=== PATIENT | female | born 1965 | race African-American/Black ===

== ENCOUNTER 2016-06-09 11:38 | Inpatient (IN) | payer OTHER ==
[~2016-06-09] VITALS: Ht 160 cm; Wt 112.7 kg
[~2016-06-09 11:38] MED LIST: BENZ100C PO; LEVO750T31 PO; PROAIR HFA8.5 GM INH
--- NOTE | 2016-06-09 13:19 | PHYS DOC ---
Past Medical History Past Medical History: Diabetes-Type II, High Cholesterol, Hypertension Past Surgical History: , Other Additional Past Surgical Histo: heart cath,LYMPH NODE BIOPSY Alcohol Use: None Drug Use: None Adult General Chief Complaint Chief Complaint: CHEST PAIN HPI HPI Patient is a 50 year old female who presents with chest pain. Patient reports for the past few days she has been having left-sided chest pain. She describes a constant pressure with occasional sharp, stabbing pains. This pain radiates to her back and her L arm. Patient reports pain is worse with movement, and slightly better when sitting still. She also reports feeling short of breath, lightheaded, nauseous. No prior similar episodes. Patient reports she has tried Pepcid and aspirin (325mg) at home today with insufficient relief. Review of Systems Review of Systems Constitutional: Lightheaded. Denies fever or chills Eyes: Denies change in visual acuity or eye pain HENT: Denies nasal congestion or sore throat Respiratory: Shortness of breath Cardiovascular: L side chest pain GI: Nausea. Denies abdominal pain, vomiting, bloody stools or diarrhea : Denies dysuria or hematuria Musculoskeletal: Chest pain radiates to back and L arm Integument: Denies rash or skin lesions Neurologic: Denies headache, focal weakness or sensory changes Current Medications Current Medications Current Medications Medications (Trade) Dose Ordered Sig/Christopher Start Time Stop Time Status Last Admin Dose Admin Iohexol (Omnipaque 300 Mg/ml) 75 ml 1X ONCE 06/09/16 14:15 06/09/16 14:16 DC 06/09/16 14:22 75 ML Morphine Sulfate 4 mg 4 mg 1X ONCE 06/09/16 13:30 06/09/16 13:36 DC 06/09/16 13:40 4 MG Nitroglycerin (Nitrostat) 0.4 mg PRN Q5MIN PRN 06/09/16 15:30 06/09/16 15:42 0.4 MG Ondansetron HCl (Zofran) 4 mg 1X ONCE 06/09/16 15:45 06/09/16 15:46 DC 06/09/16 15:42 4 MG Sodium Chloride (Iv Sodium Chloride 0.9% 1000ml Bag) 1,000 ml @ 1,000 mls/hr 1X ONCE 06/09/16 14:15 06/09/16 15:14 DC 06/09/16 14:15 1,000 MLS/HR Allergies Allergies Allergies Coded Allergies Type Severity Reaction Last Updated Verified latex Allergy Intermediate 01/05/16 Yes Physical Exam Physical Exam Constitutional: Well developed, well nourished, no acute distress, non-toxic appearance HENT: Normocephalic, atraumatic, bilateral external ears normal Eyes: EOMI, conjunctiva normal, no discharge Neck: Normal range of motion, no stridor Cardiovascular: Heart rate normal, regular rhythm, no murmur Lungs & Thorax: Bilateral breath sounds clear to auscultation Abdomen: Bowel sounds normal, soft, non-distended, no TTP Skin: Warm, dry, no erythema, no rash Back: No tenderness, no skin lesions. LUE visually unremarkable, motor function and sensation to light touch preserved, 2+ radial pulse Extremities: No obvious deformity, no edema Neurologic: Alert and oriented X 3, no gross deficits noted Current Patient Data Vital Signs Vital Signs Date Time Temp Pulse Resp B/P Pulse Ox O2 Delivery O2 Flow Rate FiO2 06/09/16 15:42 68 134/83 06/09/16 13:40 20 06/09/16 12:04 98 96 Room Air 98.0 Lab Values Laboratory Tests Test 06/09/16 12:25 White Blood Count 4.5x10^3/uL (4.0-11.0) Red Blood Count 4.49x10^6/uL (3.50-5.40) Hemoglobin 12.5g/dL (12.0-15.5) Hematocrit 38.5% (36.0-47.0) Mean Corpuscular Volume 86fL (79-100) Mean Corpuscular Hemoglobin 28pg (25-35) Mean Corpuscular Hemoglobin Concent 33g/dL (31-37) Red Cell Distribution Width 13.6% (11.5-14.5) Platelet Count 69x10^3/uL (140-400) L Neutrophils (%) (Auto) 46% (31-73) Lymphocytes (%) (Auto) 39% (24-48) Monocytes (%) (Auto) 10% (0-9) H Eosinophils (%) (Auto) 4% (0-3) H Basophils (%) (Auto) 0% (0-3) Neutrophils # (Auto) 2.1x10^3uL (1.8-7.7) Lymphocytes # (Auto) 1.8x10^3/uL (1.0-4.8) Monocytes # (Auto) 0.5x10^3/uL (0.0-1.1) Eosinophils # (Auto) 0.2x10^3/uL (0.0-0.7) Basophils # (Auto) 0.0x10^3/uL (0.0-0.2) D-Dimer (Lexis) 0.97ug/mlFEU (0.00-0.50) H Sodium Level 137mmol/L (136-145) Potassium Level 4.1mmol/L (3.5-5.1) Chloride Level 97mmol/L (98-107) L Carbon Dioxide Level 29mmol/L (21-32) Anion Gap 11 (6-14) Blood Urea Nitrogen 14mg/dL (7-20) Creatinine 1.0mg/dL (0.6-1.0) Estimated GFR (Cockcroft-Gault) 70.5 Glucose Level 384mg/dL (70-99) H Calcium Level 9.4mg/dL (8.5-10.1) Troponin I Quantitative 0.022ng/mL (0.000-0.055) Laboratory Tests 06/09/16 12:25 Laboratory Tests 06/09/16 12:25 EKG EKG EKG (my read): sinus rhythm, rate 78, normal axis, intervals wnl, nonspecific ST changes Radiology/Procedures Radiology/Procedures CXR: Impression: No acute thoracic findings. CTA chest: Impression: 1. Negative for pulmonary embolism. 2. Pulmonary nodules, follow-up per Fleischner Society recommendations. 3. Enlarged axillary lymph nodes bilaterally, correlate with any recent infection. Lymphoma cannot be excluded. Course & Med Decision Making Course & Med Decision Making Pertinent Labs and Imaging studies reviewed. (See chart for details) Patient is 50-year-old female who presents with chest discomfort, SOB, dizziness. Concern for possibility of ACS. Will check EKG, CXR, labs to evaluate. Has already had full dose ASA today. Will give dose of morphine for pain control. EKG ok per my read. Labs notable for hyperglycemia, elevated d- dimer. CTA chest obtained; imaging results as above. Patient aware of pulmonary nodules, and has had multiple biopsies with no clear diagnosis made. Discussed results with patient, who continues to have some chest discomfort. Will trial sublingual nitroglycerin for pain control. Will admit under the care of Dr. Saba for further evaluation and treatment. Dragon Disclaimer Dragon Disclaimer This electronic medical record was generated, in whole or in part, using a voice recognition dictation system. Departure Departure Impression: Primary Impression: Chest pain Additional Impressions: SOB (shortness of breath) Dizziness Disposition: ADMITTED INPATIENT Admitting Physician: Other Condition: STABLE Referrals: UNKNOWN PCP NAME (PCP) Problem Qualifiers DINA MIXON MD Jun 09, 2016 13:19
[2016-06-09 13:30] LABS: BASO % 0 % (0-3); EOS % 4 % (0-3); HEMATOCRIT 38.5 % (36.0-47.0); HEMOGLOBIN 12.5 g/dL (12.0-15.5); LYMPH # 1.8 x10^3/uL (1.0-4.8); LYMPH % 39 % (24-48); MEAN CORPUSCULAR HEMOGLOBIN 28 pg (25-35); MEAN CORPUSCULAR HGB CONC 33 g/dL (31-37); MEAN CORPUSCULAR VOLUME 86 fL (79-100); MONO % 10 % (0-9); NEUT % 46 % (31-73); PLATELET COUNT 69 x10^3/uL (140-400); RED BLOOD COUNT 4.49 x10^6/uL (3.50-5.40); RED CELL DISTRIBUTION WIDTH 13.6 % (11.5-14.5); WHITE BLOOD COUNT 4.5 x10^3/uL (4.0-11.0)
[2016-06-09] MEDS ORDERED: MORPHINE SULFATE 4 MG/ML DISP.SYRIN. IV ONE (13:30)
[2016-06-09] MEDS ORDERED: ONDANSETRON PF 4 MG/2 ML VIAL. IV ONE ×2 (13:30→15:45)
[2016-06-09 13:41] LABS: CALCIUM 9.4 mg/dL (8.5-10.1); GFR 70.5; POTASSIUM 4.1 mmol/L (3.5-5.1)
--- NOTE | 2016-06-09 13:44 | RAD ---
Indication: Left chest pain for 3 days. Short of breath today. Technique: Two-view chest radiograph was obtained. Comparison is from January 05, 2016. Findings: The lungs are clear. The cardiopulmonary silhouette is within normal limits. There is no pleural effusion. The bony structures are intact. Leads overlie the patient. Impression: No acute thoracic findings.
[2016-06-09] MEDS ORDERED: IV NORMAL SALINE 1000ML BAG 1,000 ML IV ONE (14:15)
[2016-06-09] MEDS ORDERED: IOHEXOL 300 MG/ML 75 ML VIAL IV ONE (14:15)
--- NOTE | 2016-06-09 14:56 | RAD ---
Indication: Severe chest pain radiating to back for 3 to 4 days, short of air today. Technique: Axial images and coronal and sagittal maximum intensity projection reformatted images are provided. 75 mL of intravenous Omnipaque 300 was administered without complication. No comparison is available. One or more of the following individualized dose reduction techniques were utilized for this examination: 1. Automated exposure control 2. Adjustment of the mA and/or kV according to patient size 3. Use of iterative reconstruction technique Findings: The contrast bolus is satisfactory. There is no filling defect to suggest pulmonary embolism. There is no aortic aneurysm or dissection. The heart is not enlarged. There is no hilar or mediastinal adenopathy. Central airways are patent. There is dependent atelectasis. There are calcified granulomas. Several pulmonary nodules are noted on the right, for example on images 64, 66, 72, and 94. These measure up to 5 mm in size. 3 mm nodule is noted on the left on image 52. 6 mm nodule is noted on the left on image 37. There is no consolidation. There is fatty infiltration of the liver and the liver appears enlarged. There are degenerative changes in the spine. Axillary nodes bilaterally are prominent in size and number. Nodules detected incidentally at non-screening CT (Fleischner Society Recommendations) Nodule size less than or equal to 4 mm Low Risk patients- no follow-up needed High Risk patients- follow-up at 12 months and if no change, no further imaging needed. Nodule size > 4-6 mm Low risk patients- follow- up at 12 months and if no change, no further imaging needed High risk patients- initial follow-up CT at 6-12 months and then at 18-24 months if no change. Nodule Size > 6-8 mm Low risk patients- initial follow-up CT at 6-12 months and then at 18-24 months if no change. High risk patients- initial follow- up CT at 3-6 months and then at 9-12 months if no change, Nodule Size >8 mm Both low and high risk patients: Follow-up CT at around 3, 9 and 24 [address], PET, and/or biopsy Note: newly detected indeterminate nodule in person 35 years of age or older. Low risk patients- minimal or absent history of smoking and/or other known risk factors. High risk patients- history of smoking or of other known risk factors. Impression: 1. Negative for pulmonary embolism. 2. Pulmonary nodules, follow-up per Fleischner Society recommendations. 3. Enlarged axillary lymph nodes bilaterally, correlate with any recent infection. Lymphoma cannot be excluded.
[2016-06-09] MEDS ORDERED: NITROGLYCERIN SUBLINGUAL 0.4 MG BOTTLE OF 25. SL PRN (15:30)
[2016-06-09] MEDS ORDERED: DEXTROSE 50% 25 GM / 50ML DISP.SYRIN. IV PRN (16:00)
[2016-06-09] MEDS ORDERED: ACETAMINOPHEN 325 MG TABLET. PO PRN (16:00)
[2016-06-09] MEDS ORDERED: ONDANSETRON PF 4 MG/2 ML VIAL. IV PRN (16:00)
[2016-06-09] MEDS ORDERED: MORPHINE SULFATE 4 MG/ML DISP.SYRIN. IV PRN ×2 (16:00→21:15)
--- NOTE | 2016-06-09 16:50 | ACF ---
Admission Forms Criteria CARDIOLOGY GRG Clinical Indications for Admission to Inpatient Care ( Place 'X' for any and all applicable criteria): Hospital admission is needed for appropriate care of the patient because of ANY ONE of the following (1): [ ] I. Hemodynamic instability as indicated by ALL of the following (1)(2)(3) (4)(5) [ ]a) Vital signs or other findings not as expected for chronic patient condition or baseline [ ]b) Instability indicated by ANY ONE of the following: [ ]i) Hypotension [ ]ii) Symptomatic Tachycardia unresponsive to treatment ( e.g., analgesia, fluids, sedation as indicated) [ ]iii) Inadequate perfusion indicated by ANY ONE of the following: [ ] 1) Lactic acidosis (> 2 mmol/L) [ ] 2) New abnormal capillary refill (> 3 seconds) [ ] 3) Reduced urine output [ ] 4) New altered mental status [ ]iv) Orthostatic vital sign changes unresponsive to treatment (e.g., fluids) [ ]v) IV inotropic or vasopressor medication required to maintain adequate blood pressure or perfusion [ ] II. Severe heart failure as indicated by ANY ONE of the following(17)(18) [ ]a) Respiratory distress [ ]b) Hypotension [ ]c) Anasarca (refractory to outpatient therapy) [ ]d) Cardiac arrhythmias of immediate concern [ ]e) Myocardial ischemia [ ] III. Cardiac arrhythmias or findings of immediate concern indicated by ANY ONE of the following (19)(20): [ ] a) Heart rhythms that are inherently dangerous or unstable indicated by ANY ONE of the following (21)(22)(23): [ ] i) Resuscitated ventricular fibrillation or cardiac arrest [ ] ii) Ventricular escape rhythm [ ] iii) Sustained ventricular tachycardia (30 seconds or more of ventricular rhythm at greater than 100 beats per minute) [ ] iv) Nonsustained ventricular tachycardia and ANY ONE of the following: [ ] 1) Suspected cardiac ischemia as cause or consequence of ventricular tachycardia [ ] 2) In setting of acute myocarditis [ ] b) Unstable cardiac conduction defects indicated by ANY ONE of the following(23)(24)(25) [ ] i) Type II second-degree atrioventricular block [ ]ii) Third-degree atrioventricular block [ ]iii) New-onset left bundle branch block with suspected myocardial ischemia [ ]c) Any heart rhythm and ANY ONE of the following (21)(22)(26)(27) (28) [ ] i) Continuous long-term ECG monitoring needed (e.g., initiation of drug requiring monitoring for more than 24 hours) [ ] ii) Patient has automatic implanted cardioverter defibrillator that is repeatedly firing, malfunctioning, or in need of immediate adjustment of settings beyond the scope of ambulatory or observation care [ ]d) Heart rhythms of concern due to ANY ONE of the following: [ ] i) Hypotension [ ] ii) Respiratory distress [ ] iii) Association with other significant symptoms (e.g., bradycardia with syncope or ongoing dizziness, supraventricular tachycardia with chest pain (14)(15)(17) [ ] IV. Monitoring for cardiac contusion beyond the scope of observation care needed [A](30)(31)(32) [ ] V. Surgical or device complication (e.g., valve replacement complication , pacemaker dysfunction) (35)(41)(44)(45)(46) [ ] . Inpatient palliative care needed. [B](49) Also use Inpatient Palliative Care Criteria [ ] VII. Nonbacterial thrombotic (marantic) endocarditis (36)(43)(47)(48) [X] VIII. Cardiology condition, symptom, or finding for which emergency and observation care has failed or are not considered appropriate. [ ] IX. Acute valvular disease requiring inpatient as indicated by ANY ONE of the following (41) [ ]a) Acute valvular regurgitation (42) [ ]b) Noninfectious valvulitis (43) [ ]c) Obstructive valve thrombosis [ ]d) Paravalvular leak [ ]e) Other significant valvular disorder remaining after emergency or observation level of care (as appropriate) [ ]X. Pericardial disease requiring inpatient treatment as indicated by ANY ONE of the following (33)(34)(35)(36)(37) [ ]a) Suspected tamponade (38)(39)(40) [ ]b) Hemopericardium [ ]c) Other significant pericardial disorder remaining after emergency or observation level of care (as appropriate) [ ] XI. Cardiac ischemia beyond scope of emergency and observation care. [ ] XII. Hypertension requiring inpatient treatment as indicated by ANY ONE of the following (6)(7)(8) [ ]a) SBP greater than 220 mm Hg or DBP greater than 120 mmHg despite treatment [ ]b) SBP greater than 140 mm Hg or DBP greater than 100 mm Hg with evidence of acute end organ damage as indicated by ANY ONE of the following [ ] i) Encephalopathy [ ] ii) Acute renal failure as indicated by new onset of ANY ONE of the following (9)(10)(11)(12)(13) [ ]1) 3-fold rise in serum creatinine from baseline [ ]2) Serum creatinine greater than 4 mg/dL ( 354 micromoles/L) with acute rise greater than 0.5 mg/dL (44.2 micromoles/L) [ ]3) Reduction of more than 75% in estimated glomerular filtration rate from baseline [ ]4) Estimated glomerular filtration rate less than 35 mL/min/1.73m2 (0.59 mL/sec/1.73m2) in child up to 18 years of age [ ]5) Cessation of urine output indicated by ALL of the following [ ]A. Adequate volume status [ ]B. Inadequate urine output as indicated by ANY ONE of the following [ ]a. Urine output less than 0.3 mL/kg/hr for 24 hours [ ]b. Anuria (urine output less than 0.1 mL/kg/hr) for 12 hours [ ] iii) Aortic dissection [ ] iv) Myocardial Ischemia [ ] v) Left ventricular heart failure [ ]vi) Retinal Hemorrhage [ ]vii) Other significant finding [ ]c) Hypertension in child requiring inpatient treatment as indicated by ALL of the following(14)(15)(16) [ ] i) Outpatient treatment not effective, not available, or not appropriate [ ]ii) SBP or DBP greater than 95th percentile for age [ ]iii) Evidence of acute end organ damage as indicated by ANY ONE of the following [ ]1) Altered mental status [ ]2) Acute renal failure as indicated by new onset of ANY ONE of the following(9)(10)(11)(12)(13) [ ]A. 3-fold rise in serum creatinine from baseline [ ]B. Serum creatinine greater than 4 mg/dL (354 micromoles/L) with acute rise greater than 0.5 mg/dL (44.2 micromoles/L) [ ]C. Reduction of more than 75% in estimated glomerular filtration rate from baseline [ ]D. Estimated glomerular filtration rate less than 35 mL/min/1.73m2 (0.59 mL/sec/1.73m2) in child up to 18 years of age [ ]E. Cessation of urine output indicated by ALL of the following [ ]a. Adequate volume status [ ]b. Inadequate urine output as indicated by ANY ONE of the following [ ]i) Urine output less than 0.3 mL/kg/hr for 24 hours [ ]ii) Anuria ( urine output less than 0.1 mL/kg/hr) for 12 hours [ ]3) Severe headache [ ]4) Visual disturbance [ ]5) Retinal hemorrhage [ ]6) Other significant finding [ ]XIII. Complications of transplanted heart indicated by ANY ONE of the following(61): [ ]a) Acute graft rejection requiring inpatient management (eg, intravenous immunosuppression)(62)(63) [ ]b) Acute graft heart failure indicated by ANY ONE of the following(64): [ ]i) Hemodynamic instability [ ]ii) Cardiac arrhythmias of immediate concern [ ]iii) Pulmonary edema that is very severe (eg, mechanical ventilation needed, imminent or likely, need for 100% oxygen to keep oxygen saturation above 90%) [ ]iv) Pulmonary edema that is persistent as indicated by ALL of the following: [ ]1) New need for oxygen therapy to keep oxygen saturation above 90% (or increased FiO2 need from baseline) [ ]2) Has not improved sufficiently with emergency department or observation care IV diuretics or other heart failure treatments[E] [ ]v) Altered mental status that is severe or persistent [ ]vi) Increased creatinine (new on laboratory test) with reduction of more than 50% in estimated glomerular filtration rate from baseline [ ]vii) Progressively (ongoing) rising creatinine (known from past laboratory test) with reduction of more than 25% in estimated glomerular filtration rate from baseline [ ]viii) Acute renal failure [ ]ix) Acute peripheral ischemia (eg, examination shows pulseless, cool, mottled, or cyanotic extremity) [ ]x) Pulmonary artery catheter monitoring needed [ ]xi) Other sign or symptom of heart failure requiring inpatient treatment (ie, too severe or not responsive to outpatient and observation care treatment) [ ]c) Infection requiring inpatient management (eg, Hemodynamic instability, need for intravenous antimicrobial treatment)(66)(67)(68)(69)(70) [ ]d) Cardiac allograft vasculopathy requiring inpatient management ( eg evidence of cardiac ischemia)(71) [ ]e) Other complication of transplanted heart (eg, stroke, severe pulmonary hypertension, severe valvular dysfunction) requiring inpatient management(72) The original [facility] content created by [facility] has been revised. The portions of the content which have been revised are identified through the use of italic text or in bold, and [facility] has neither reviewed nor approved the modified material. All other unmodified content is copyright [facility]. Please see references footnoted in the original [facility] edition 2016 Admission Criteria Met?: Yes LUIS ANTONIO REDDY Jun 09, 2016 16:50
[2016-06-09 17:00] VITALS: BP 138/78
[2016-06-09] MEDS ORDERED: PRAV40TA2 PO (17:26)
[2016-06-09] MEDS ORDERED: METF10002 PO (17:26)
[2016-06-09] MEDS ORDERED: GLYB2.5T2 PO (17:26)
[2016-06-09] MEDS ORDERED: LISI-334 PO (17:26)
[2016-06-09] MEDS ORDERED: INSU100I13 SQ (17:26)
[2016-06-09] MEDS ORDERED: HYDR12.58 PO (17:26)
[2016-06-09] MEDS: INSULIN ASPART 300 UNITS/3 ML INSULN.PEN SQ SCH (17:36)
[2016-06-09] MEDS ORDERED: NON FORMULARY ITEM (Albuterol Sulfate (Proair Hfa Inhaler) 1 PUFF) INH PRN (18:45)
[2016-06-09 19:00] VITALS: BP 165/101
[2016-06-09] MEDS ORDERED: ALBUTEROL SULFATE 2.5 MG/3 ML NEBU. NEB PRN (19:30)
[2016-06-09] MEDS ORDERED: METOCLOPRAMIDE HCL 10 MG/2 ML VIAL. IV PRN (21:00)
[2016-06-09] MEDS ORDERED: ATORVASTATIN CALCIUM 10 MG TABLET. PO SCH (21:00)
[2016-06-09] MEDS ORDERED: MORPHINE SULFATE 2 MG/ML DISP.SYRIN. IV PRN (21:15)
--- NOTE | 2016-06-09 21:43 | HP ---
ADMIT DATE: 06/09/2016 CHIEF COMPLAINT: Chest pain. HISTORY OF PRESENT ILLNESS: The patient is a 50-year-old obese woman with diabetes mellitus who presented to the Emergency Room with left-sided chest pain. She relates that the pain is located in the lower half of the chest on the left just lateral to the sternum. This started essentially 3 days ago first to be a constant pressure with occasional sharp, stabbing pains. Pain actually radiates into her back. Denies that it gets worse with deep breathing, but does get worse with moving. She feels short of breath, lightheaded, nauseous. She actually had also pain radiating into her neck and into her left arm earlier today. She tried Pepcid without any relief of her symptoms and therefore decided to present to the Emergency Room. Of note, she actually had presented with chest pain to an outside hospital in 2014 and had undergone a stress test, which was abnormal, prompting a cardiac cath which according to her was clean. Since being in the Emergency Room, patient actually vomited twice, which she had not done at home. She denies any fevers, any chills, any sick contacts at home. Denies any abdominal pain or diarrhea or constipation. PAST MEDICAL HISTORY: Diabetes type 2, hypertension, hypercholesterolemia, lymphadenopathy in both axillae as well as lesions in her lungs. Worked up at with 3 lymph node biopsies between October and January, all inconclusive. She continues to be followed currently by Infectious Disease. FAMILY HISTORY: Positive for diabetes and heart disease. SOCIAL HISTORY: Lives by herself, never smoked. No toxic habits. 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 ALLERGIES: LATEX. MEDICATIONS: MAR reconciled with home medications. REVIEW OF SYSTEMS: Positive as per HPI. Once again nauseous despite receiving Zofran in the ER. The rest of organ system review is negative. PHYSICAL EXAMINATION: VITAL SIGNS: From today show blood pressure of 165/101, heart rate 79, respiratory rate at 18. She is afebrile. GENERAL: This is a morbidly obese woman, alert and oriented, no acute distress. HEENT: Shows no scleral icterus. Oral mucosa is pink and moist. NECK: Supple. LUNGS: Clear to auscultation bilaterally. CARDIOVASCULAR: Regular rate and rhythm. ABDOMEN: Has positive bowel sounds, soft, no tenderness to palpation throughout. EXTREMITIES: Showed no edema. SKIN: Warm, soft and dry. LABORATORY DATA: CBC with a WBC of 4.5, hemoglobin 12.5, platelets of 69. Chemistries with a BUN and creatinine of 14 and 1.0. Electrolytes essentially within normal limits. Glucose at 384. Troponin 0.02. D-dimer slightly elevated at 0.97. Imaging studies with a chest x-ray showing no acute thoracic findings. CTA obtained for elevated D-dimer shows no evidence of PE, multiple pulmonary nodules were noted as well as enlarged axillary lymph nodes bilaterally. ASSESSMENT AND PLAN: The patient is a 50-year-old woman with atypical chest pain x 3 days. She did have workup 2 years ago that was negative. Nevertheless, we will admit to rule out acute coronary syndrome. Suspect this may be related to GI system, especially with additional symptoms of nausea and vomiting. We will switch antiemetics from Zofran to Reglan and give her IV fluids, bowel rest for the time being. Blood sugars are very poorly controlled currently. She relates that typically she does not go above 200 with her blood sugars at home. We will add insulin sliding scale to her regimen to keep her sugars under control. Hemoglobin A1c will be obtained. Mild hypokalemia will be corrected IV, given her nausea at this time. Monitor her closely. Lymphadenopathy and pulmonary nodules have been worked up at extensively over the past year. The processes are thought to be connected potentially lymphoma versus infectious etiology. These appear to be highly unlikely related to current symptoms. Prophylaxis will be achieved with PPI. We will start Lovenox for DVT prophylaxis as well. KOTA LYNN MD DR: JAMSHID/nts JOB#: [id number] / [id number] GURDEEP
[2016-06-09] MEDS: LISINOPRIL 20 MG TABLET PO SCH (21:49)
[2016-06-09] MEDS: INSULIN DETEMIR 300 UNITS/3 ML INSULN.PEN. SQ SCH (21:52)
[2016-06-09 22:44] VITALS: BP 134/89
[2016-06-10 02:45] VITALS: BP 120/70
--- NOTE | 2016-06-10 06:06 | EKG ---
[facility] [address] [place] [address] Test Date: 2016-06-09 Test Time: 12:17:31 Pat Name: SHIRA MONDRAGON Department: Room: Gender: F Development Advisor: : [id number] Requested By: DINA MIXON Order Number: [id number] Reading MD: Measurements Intervals [place] Rate: 78 P: 39 WV: 134 QRS: 6 QRSD: 90 T: -3 QT: 380 QTc: 437 Interpretive Statements SINUS RHYTHM T ABNORMALITY IN INFERIOR LEADS RI6.01 Unconfirmed report No previous ECG available for comparison
[2016-06-10 06:22] LABS: HEMATOCRIT 35.7 % (36.0-47.0); HEMOGLOBIN 11.9 g/dL (12.0-15.5); RED BLOOD COUNT 4.25 x10^6/uL (3.50-5.40); RED CELL DISTRIBUTION WIDTH 13.7 % (11.5-14.5); WHITE BLOOD COUNT 5.7 x10^3/uL (4.0-11.0)
[2016-06-10 07:00] VITALS: BP 102/72
[2016-06-10 07:03] LABS: ALBUMIN 3.2 g/dL (3.4-5.0); ALBUMIN/GLOBULIN RATIO 0.9 (1.0-1.7); CALCIUM 9.1 mg/dL (8.5-10.1); CREATININE 0.8 mg/dL (0.6-1.0); GFR 91.1; POTASSIUM 3.9 mmol/L (3.5-5.1); TOTAL BILIRUBIN 0.4 mg/dL (0.2-1.0); TOTAL PROTEIN 6.7 g/dL (6.4-8.2)
[2016-06-10] MEDS: GLYBURIDE 5 MG TABLET PO SCH (08:08)
[2016-06-10] MEDS: INSULIN ASPART 300 UNITS/3 ML INSULN.PEN SQ SCH ×3 (08:11→16:57)
[2016-06-10] MEDS: HYDROCHLOROTHIAZIDE 12.5 MG CAPSULE. PO SCH (10:07)
[2016-06-10 10:51] VITALS: BP 123/79
--- NOTE | 2016-06-10 11:40 | PDOC ---
PROGRESS NOTES Chief Complaint Chief Complaint chest pain anginal? morbid obeisty, BMI 42 known pulm nodules check lipids, a1c History of Present Illness History of Present Illness pain better today prior CV workup was 2 years ago consult CV, consider DC if cleared Vitals Vitals Vital Signs Date Time Temp Pulse Resp B/P Pulse Ox O2 Delivery O2 Flow Rate FiO2 06/10/16 10:51 97.5 75 16 123/79 100 Room Air 97.5 Physical Exam General: Alert, Oriented X3, Cooperative, No acute distress Heart: Regular rate, Normal S1, No murmurs Lungs: Clear Abdomen: Normal bowel sounds, Soft, No tenderness, Other (obese, not tender) Extremities: No clubbing Skin: No rashes Labs LABS Laboratory Tests Test 06/09/16 12:25 06/09/16 16:56 06/09/16 21:12 06/09/16 21:13 White Blood Count 4.5x10^3/uL (4.0-11.0) Red Blood Count 4.49x10^6/uL (3.50-5.40) Hemoglobin 12.5g/dL (12.0-15.5) Hematocrit 38.5% (36.0-47.0) Mean Corpuscular Volume 86fL (79-100) Mean Corpuscular Hemoglobin 28pg (25-35) Mean Corpuscular Hemoglobin Concent 33g/dL (31-37) Red Cell Distribution Width 13.6% (11.5-14.5) Platelet Count 69x10^3/uL (140-400) Neutrophils (%) (Auto) 46% (31-73) Lymphocytes (%) (Auto) 39% (24-48) Monocytes (%) (Auto) 10% (0-9) Eosinophils (%) (Auto) 4% (0-3) Basophils (%) (Auto) 0% (0-3) Neutrophils # (Auto) 2.1x10^3uL (1.8-7.7) Lymphocytes # (Auto) 1.8x10^3/uL (1.0-4.8) Monocytes # (Auto) 0.5x10^3/uL (0.0-1.1) Eosinophils # (Auto) 0.2x10^3/uL (0.0-0.7) Basophils # (Auto) 0.0x10^3/uL (0.0-0.2) D-Dimer (Lexis) 0.97ug/mlFEU (0.00-0.50) Sodium Level 137mmol/L (136-145) Potassium Level 4.1mmol/L (3.5-5.1) Chloride Level 97mmol/L (98-107) Carbon Dioxide Level 29mmol/L (21-32) Anion Gap 11 (6-14) Blood Urea Nitrogen 14mg/dL (7-20) Creatinine 1.0mg/dL (0.6-1.0) Estimated GFR (Cockcroft-Gault) 70.5 Glucose Level 384mg/dL (70-99) Calcium Level 9.4mg/dL (8.5-10.1) Troponin I Quantitative 0.022ng/mL (0.000-0.055) < 0.017ng/mL (0.000-0.055) Glucose (Fingerstick) 273mg/dL (70-99) 284mg/dL (70-99) Test 06/10/16 05:50 06/10/16 07:21 06/10/16 10:57 White Blood Count 5.7x10^3/uL (4.0-11.0) Red Blood Count 4.25x10^6/uL (3.50-5.40) Hemoglobin 11.9g/dL (12.0-15.5) Hematocrit 35.7% (36.0-47.0) Mean Corpuscular Volume 84fL (79-100) Mean Corpuscular Hemoglobin 28pg (25-35) Mean Corpuscular Hemoglobin Concent 33g/dL (31-37) Red Cell Distribution Width 13.7% (11.5-14.5) Platelet Count 70x10^3/uL (140-400) Sodium Level 139mmol/L (136-145) Potassium Level 3.9mmol/L (3.5-5.1) Chloride Level 100mmol/L (98-107) Carbon Dioxide Level 30mmol/L (21-32) Anion Gap 9 (6-14) Blood Urea Nitrogen 12mg/dL (7-20) Creatinine 0.8mg/dL (0.6-1.0) Estimated GFR (Cockcroft-Gault) 91.1 BUN/Creatinine Ratio 15 (6-20) Glucose Level 239mg/dL (70-99) Calcium Level 9.1mg/dL (8.5-10.1) Total Bilirubin 0.4mg/dL (0.2-1.0) Aspartate Amino Transf (AST/SGOT) 11U/L (15-37) Alanine Aminotransferase (ALT/SGPT) 18U/L (14-59) Alkaline Phosphatase 120U/L (46-116) Total Protein 6.7g/dL (6.4-8.2) Albumin 3.2g/dL (3.4-5.0) Albumin/Globulin Ratio 0.9 (1.0-1.7) Glucose (Fingerstick) 229mg/dL (70-99) 191mg/dL (70-99) Review of Systems Review of Systems chest pain, not reproducible Assessment and Plan Assessmemt and Plan Problems Medical Problems: (1) Chest pain Status: Acute (2) Dizziness Status: Acute (3) SOB (shortness of breath) Status: Acute Problems: Comment Review of Relevant I have reviewed the following items ángela (where applicable) has been applied. Labs Laboratory Tests Test 06/09/16 12:25 06/09/16 16:56 06/09/16 21:12 06/09/16 21:13 White Blood Count 4.5x10^3/uL (4.0-11.0) Red Blood Count 4.49x10^6/uL (3.50-5.40) Hemoglobin 12.5g/dL (12.0-15.5) Hematocrit 38.5% (36.0-47.0) Mean Corpuscular Volume 86fL (79-100) Mean Corpuscular Hemoglobin 28pg (25-35) Mean Corpuscular Hemoglobin Concent 33g/dL (31-37) Red Cell Distribution Width 13.6% (11.5-14.5) Platelet Count 69x10^3/uL (140-400) Neutrophils (%) (Auto) 46% (31-73) Lymphocytes (%) (Auto) 39% (24-48) Monocytes (%) (Auto) 10% (0-9) Eosinophils (%) (Auto) 4% (0-3) Basophils (%) (Auto) 0% (0-3) Neutrophils # (Auto) 2.1x10^3uL (1.8-7.7) Lymphocytes # (Auto) 1.8x10^3/uL (1.0-4.8) Monocytes # (Auto) 0.5x10^3/uL (0.0-1.1) Eosinophils # (Auto) 0.2x10^3/uL (0.0-0.7) Basophils # (Auto) 0.0x10^3/uL (0.0-0.2) D-Dimer (Lexis) 0.97ug/mlFEU (0.00-0.50) Sodium Level 137mmol/L (136-145) Potassium Level 4.1mmol/L (3.5-5.1) Chloride Level 97mmol/L (98-107) Carbon Dioxide Level 29mmol/L (21-32) Anion Gap 11 (6-14) Blood Urea Nitrogen 14mg/dL (7-20) Creatinine 1.0mg/dL (0.6-1.0) Estimated GFR (Cockcroft-Gault) 70.5 Glucose Level 384mg/dL (70-99) Calcium Level 9.4mg/dL (8.5-10.1) Troponin I Quantitative 0.022ng/mL (0.000-0.055) < 0.017ng/mL (0.000-0.055) Glucose (Fingerstick) 273mg/dL (70-99) 284mg/dL (70-99) Test 06/10/16 05:50 06/10/16 07:21 06/10/16 10:57 White Blood Count 5.7x10^3/uL (4.0-11.0) Red Blood Count 4.25x10^6/uL (3.50-5.40) Hemoglobin 11.9g/dL (12.0-15.5) Hematocrit 35.7% (36.0-47.0) Mean Corpuscular Volume 84fL (79-100) Mean Corpuscular Hemoglobin 28pg (25-35) Mean Corpuscular Hemoglobin Concent 33g/dL (31-37) Red Cell Distribution Width 13.7% (11.5-14.5) Platelet Count 70x10^3/uL (140-400) Sodium Level 139mmol/L (136-145) Potassium Level 3.9mmol/L (3.5-5.1) Chloride Level 100mmol/L (98-107) Carbon Dioxide Level 30mmol/L (21-32) Anion Gap 9 (6-14) Blood Urea Nitrogen 12mg/dL (7-20) Creatinine 0.8mg/dL (0.6-1.0) Estimated GFR (Cockcroft-Gault) 91.1 BUN/Creatinine Ratio 15 (6-20) Glucose Level 239mg/dL (70-99) Calcium Level 9.1mg/dL (8.5-10.1) Total Bilirubin 0.4mg/dL (0.2-1.0) Aspartate Amino Transf (AST/SGOT) 11U/L (15-37) Alanine Aminotransferase (ALT/SGPT) 18U/L (14-59) Alkaline Phosphatase 120U/L (46-116) Total Protein 6.7g/dL (6.4-8.2) Albumin 3.2g/dL (3.4-5.0) Albumin/Globulin Ratio 0.9 (1.0-1.7) Glucose (Fingerstick) 229mg/dL (70-99) 191mg/dL (70-99) Laboratory Tests Test 06/09/16 12:25 06/09/16 16:56 06/09/16 21:12 06/09/16 21:13 White Blood Count 4.5x10^3/uL (4.0-11.0) Red Blood Count 4.49x10^6/uL (3.50-5.40) Hemoglobin 12.5g/dL (12.0-15.5) Hematocrit 38.5% (36.0-47.0) Mean Corpuscular Volume 86fL (79-100) Mean Corpuscular Hemoglobin 28pg (25-35) Mean Corpuscular Hemoglobin Concent 33g/dL (31-37) Red Cell Distribution Width 13.6% (11.5-14.5) Platelet Count 69x10^3/uL (140-400) Neutrophils (%) (Auto) 46% (31-73) Lymphocytes (%) (Auto) 39% (24-48) Monocytes (%) (Auto) 10% (0-9) Eosinophils (%) (Auto) 4% (0-3) Basophils (%) (Auto) 0% (0-3) Neutrophils # (Auto) 2.1x10^3uL (1.8-7.7) Lymphocytes # (Auto) 1.8x10^3/uL (1.0-4.8) Monocytes # (Auto) 0.5x10^3/uL (0.0-1.1) Eosinophils # (Auto) 0.2x10^3/uL (0.0-0.7) Basophils # (Auto) 0.0x10^3/uL (0.0-0.2) D-Dimer (Lexis) 0.97ug/mlFEU (0.00-0.50) Sodium Level 137mmol/L (136-145) Potassium Level 4.1mmol/L (3.5-5.1) Chloride Level 97mmol/L (98-107) Carbon Dioxide Level 29mmol/L (21-32) Anion Gap 11 (6-14) Blood Urea Nitrogen 14mg/dL (7-20) Creatinine 1.0mg/dL (0.6-1.0) Estimated GFR (Cockcroft-Gault) 70.5 Glucose Level 384mg/dL (70-99) Calcium Level 9.4mg/dL (8.5-10.1) Troponin I Quantitative 0.022ng/mL (0.000-0.055) < 0.017ng/mL (0.000-0.055) Glucose (Fingerstick) 273mg/dL (70-99) 284mg/dL (70-99) Test 06/10/16 05:50 06/10/16 07:21 06/10/16 10:57 White Blood Count 5.7x10^3/uL (4.0-11.0) Red Blood Count 4.25x10^6/uL (3.50-5.40) Hemoglobin 11.9g/dL (12.0-15.5) Hematocrit 35.7% (36.0-47.0) Mean Corpuscular Volume 84fL (79-100) Mean Corpuscular Hemoglobin 28pg (25-35) Mean Corpuscular Hemoglobin Concent 33g/dL (31-37) Red Cell Distribution Width 13.7% (11.5-14.5) Platelet Count 70x10^3/uL (140-400) Sodium Level 139mmol/L (136-145) Potassium Level 3.9mmol/L (3.5-5.1) Chloride Level 100mmol/L (98-107) Carbon Dioxide Level 30mmol/L (21-32) Anion Gap 9 (6-14) Blood Urea Nitrogen 12mg/dL (7-20) Creatinine 0.8mg/dL (0.6-1.0) Estimated GFR (Cockcroft-Gault) 91.1 BUN/Creatinine Ratio 15 (6-20) Glucose Level 239mg/dL (70-99) Calcium Level 9.1mg/dL (8.5-10.1) Total Bilirubin 0.4mg/dL (0.2-1.0) Aspartate Amino Transf (AST/SGOT) 11U/L (15-37) Alanine Aminotransferase (ALT/SGPT) 18U/L (14-59) Alkaline Phosphatase 120U/L (46-116) Total Protein 6.7g/dL (6.4-8.2) Albumin 3.2g/dL (3.4-5.0) Albumin/Globulin Ratio 0.9 (1.0-1.7) Glucose (Fingerstick) 229mg/dL (70-99) 191mg/dL (70-99) Medications Current Medications Ondansetron HCl (Zofran) 4 mg 1X ONCE IV Last administered on 06/09/16 13:40 ; Start 06/09/16 at 13:30; Stop 06/09/16 at 13:36; Status DC Morphine Sulfate 4 mg 4 mg 1X ONCE IV Last administered on 06/09/16 13:40; Start 06/09/16 at 13:30; Stop 06/09/16 at 13:36; Status DC Sodium Chloride (Iv Sodium Chloride 0.9% 1000ml Bag) 1,000 ml @ 1,000 mls/hr 1X ONCE IV Last administered on 06/09/16 14:15; Start 06/09/16 at 14:15; Stop 06/09/16 at 15:14; Status DC Iohexol (Omnipaque 300 Mg/ml) 75 ml 1X ONCE IV Last administered on 06/09/16 14:22; Start 06/09/16 at 14:15; Stop 06/09/16 at 14:16; Status DC Nitroglycerin (Nitrostat) 0.4 mg PRN Q5MIN PRN SL CHEST PAIN Last administered on 06/09/16 15:42; Start 06/09/16 at 15:30 Ondansetron HCl (Zofran) 4 mg 1X ONCE IV Last administered on 06/09/16 15:42 ; Start 06/09/16 at 15:45; Stop 06/09/16 at 15:46; Status DC Ondansetron HCl (Zofran) 4 mg PRN Q8HRS PRN IV NAUSEA/VOMITING; Start 06/09/16 at 16:00; Stop 06/09/16 at 20:55; Status DC Morphine Sulfate 2 mg PRN Q2HR PRN IV PAIN Last administered on 06/09/16 18:50 ; Start 06/09/16 at 16:00; Stop 06/09/16 at 21:09; Status DC Acetaminophen (Tylenol) 650 mg PRN Q4HRS PRN PO FEVER; Start 06/09/16 at 16:00 ; Stop 06/10/16 at 15:59 Insulin Aspart (Novolog) 0-7 UNITS TIDWMEALS SQ Last administered on 06/10/16 08:11; Start 06/09/16 at 17:00 Dextrose 12.5 gm PRN Q15MIN PRN IV SEE COMMENTS; Start 06/09/16 at 16:00 Lisinopril (Prinivil) 20 mg HS PO Last administered on 06/09/16 21:49; Start 06/09/16 at 21:00 Non-Formulary Medication 1 puff PRN Q6HRS PRN INH SHORTNESS OF BREATH; Start at 18:45; Stop 06/09/16 at 19:29; Status DC Glyburide (Diabeta) 2.5 mg DAILYWBKFT PO Last administered on 06/10/16 08:08; Start 06/10/16 at 08:00 Hydrochlorothiazide (Microzide) 12.5 mg DAILY PO Last administered on 10:07; Start 06/10/16 at 09:00 Insulin Detemir (Levemir) 10 units QHS SQ Last administered on 3/19/17at 21:52 ; Start 06/09/16 at 21:00 Atorvastatin Calcium (Lipitor) 10 mg QHS PO Last administered on 06/09/16 21: 48; Start 06/09/16 at 21:00 Albuterol Sulfate (Ventolin Neb Soln) 2.5 mg PRN Q6HRS PRN NEB SHORTNESS OF BREATH; Start 06/09/16 at 19:30 Metoclopramide HCl (Reglan) 10 mg PRN Q6HRS PRN IV NAUSEA/VOMITING Last administered on 06/09/16t 21:48; Start 06/09/16 at 21:00 Morphine Sulfate 1 mg PRN Q2HR PRN IV SEVERE PAIN; Start 06/09/16 at 21:15; Stop 06/09/16 at 21:15; Status DC Morphine Sulfate 1 mg PRN Q2HR PRN IV SEVERE PAIN; Start 06/09/16 at 21:15 Metformin HCl (Glucophage) 1,000 mg BIDWMEALS PO ; Start 06/10/16 at 12:00 Active Scripts Active Proair Hfa Inhaler (Albuterol Sulfate) 8.5 Gm Hfa.aer.ad 1 Puff INH PRN Q6HRS PRN Reported Pravastatin Sodium 40 Mg Tablet 1 Tab PO QHS Glyburide 2.5 Mg Tablet 1 Tab PO DAILY Hydrochlorothiazide Tablet (Hydrochlorothiazide) 12.5 Mg Tablet 1 Tab PO HS Lisinopril 20 Mg Tablet 1 Tab PO HS Metformin Hcl 1,000 Mg Tablet 1 Tab PO BID Lantus Solostar (Insulin Glargine,Hum.rec.anlog) 100 Unit/1 Ml Insuln.pen 10 Unit SQ QHS Vitals/I & O Vital Sign - Last 24 Hours 06/09/16 06/09/16 06/09/16 06/09/16 12:04 12:30 13:00 13:40 Temp 98 98.0 Pulse 78 70 70 Resp 20 16 24 20 B/P 134/83 130/82 116/65 Pulse Ox 96 97 99 O2 Delivery Room Air 06/09/16 06/09/16 06/09/16 06/09/16 14:00 15:00 15:42 16:00 Pulse 62 60 68 60 Resp 15 15 10 B/P 116/78 147/89 134/83 151/77 Pulse Ox 93 98 97 3/06/09/16 06/09/16 06/09/16 17:00 17:00 18:50 19:00 Temp 96.4 97.5 96.4 97.5 Pulse 68 79 Resp 18 B/P 138/78 165/101 Pulse Ox 100 100 94 O2 Delivery Room Air Room Air Room Air Room Air 06/09/16 06/09/16 06/09/16 06/10/16 19:51 21:49 22:44 02:45 Temp 96.8 97.5 96.8 97.5 Pulse 79 71 64 Resp 18 B/P 165/101 134/89 120/70 Pulse Ox 99 100 O2 Delivery Room Air Room Air Room Air 06/10/16 06/10/16 07:00 10:51 Temp 98.0 97.5 98.0 97.5 Pulse 74 75 Resp 16 B/P 102/72 123/79 Pulse Ox 97 100 O2 Delivery Room Air Room Air Intake and Output 06/09/16 06/09/16 06/10/16 15:00 23:00 07:00 Output Total 0 ml Balance 0 ml RAFAEL WARREN MD Jun 10, 2016 11:40
[2016-06-10 11:52] LABS: CHOLESTEROL/HDL RATIO 4.8
[2016-06-10] MEDS: METFORMIN 1,000 MG TABLET PO SCH ×2 (12:00→16:57)
--- NOTE | 2016-06-10 12:24 | PDOC2 ---
MICAELAJIMI Taylor LEAD RAMP AGENT 06/10/16 1224: CARDIAC CONSULT DATE OF CONSULT Date of Consult DATE: 06/10/16 TIME: 12:24 REASON FOR CONSULT Reason for Consult: chest pain REFERRING PHYSICIAN Referring Physician: Dr. Venus Gonzalez SOURCE Source: Chart review, Patient HISTORY OF PRESENT ILLNESS HISTORY OF PRESENT ILLNESS 50 year old female with recent intermittent cough and history of multiple lung biopsies in 2016 for lymphadenopathy with biopsies inconclusive. Developed supramammary chest pain yesterday shooting straight through into her back, up into the cervical neck and into the left arm. Described as constant, stabbing pressure that is worse with movement of her entire trunk/chest area. Associated with dyspnea, nausea, vomiting, dizziness and lightheadedness. Pain exacerbated by laughing. Treated with Pepcid, Di Back and Body without symptom resolution. Given morphine, SL NTG and Zofran in ER without change in symptoms. In 2014 had dyspnea and chest tightness with MPI done @ [facility] - reported as abnormal and underwent cardiac catheterization reported as "normal." Current EKG without acute changes though with T wave inversion lead III also present on EKG of 01/05/2016. Troponin levels have not been consistent with AMI X 2. Reason for Visit: CP PAST MEDICAL HISTORY Cardiovascular: HTN, Hyperlipidemia Pulmonary: Pneumonia (lymphadenopathy with multiple inconclusive biopsies in 2016) Endocrine: Diabetes PAST SURGICAL HISTORY Past Surgical History: Other (lung biopsies; [facility]) FAMILY HISTORY Family History: Hypertension SOCIAL HISTORY Social History works as [employer] Smoke: No ALCOHOL: none Drugs: None CURRENT MEDICATIONS CURRENT MEDICATIONS Current Medications Medications (Trade) Dose Ordered Sig/Christopher Route PRN Reason Start Time Stop Time Status Last Admin Dose Admin Ondansetron HCl (Zofran) 4 mg 1X ONCE IV 06/09/16 13:30 06/09/16 13:36 DC 06/09/16 13:40 Morphine Sulfate 4 mg 4 mg 1X ONCE IV 06/09/16 13:30 06/09/16 13:36 DC 06/09/16 13:40 Sodium Chloride (Iv Sodium Chloride 0.9% 1000ml Bag) 1,000 ml @ 1,000 mls/hr 1X ONCE IV 06/09/16 14:15 06/09/16 15:14 DC 06/09/16 14:15 Iohexol (Omnipaque 300 Mg/ml) 75 ml 1X ONCE IV 06/09/16 14:15 06/09/16 14:16 DC 06/09/16 14:22 Nitroglycerin (Nitrostat) 0.4 mg PRN Q5MIN PRN SL CHEST PAIN 06/09/16 15:30 06/09/16 15:42 Ondansetron HCl (Zofran) 4 mg 1X ONCE IV 06/09/16 15:45 06/09/16 15:46 DC 06/09/16 15:42 Morphine Sulfate 2 mg PRN Q2HR PRN IV PAIN 06/09/16 16:00 06/09/16 21:09 DC 06/09/16 18:50 Insulin Aspart (Novolog) 0-7 UNITS TIDWMEALS SQ 06/09/16 17:00 06/10/16 08:11 Lisinopril (Prinivil) 20 mg HS PO 06/09/16 21:00 06/09/16 21:49 Glyburide (Diabeta) 2.5 mg DAILYWBKFT PO 06/10/16 08:00 06/10/16 08:08 Hydrochlorothiazide (Microzide) 12.5 mg DAILY PO 06/10/16 09:00 06/10/16 10:07 Insulin Detemir (Levemir) 10 units QHS SQ 06/09/16 21:00 06/09/16 21:52 Atorvastatin Calcium (Lipitor) 10 mg QHS PO 06/09/16 21:00 06/09/16 21:48 Metoclopramide HCl (Reglan) 10 mg PRN Q6HRS PRN IV NAUSEA/VOMITING 06/09/16 21:00 06/09/16 21:48 ALLERGIES ALLERGIES: Coded Allergies: latex (Verified Allergy, Intermediate, 01/05/16) ROS Review of System 14 point review with pertinent positives in HPI PHYSICAL EXAM General: Alert, Oriented X3, Cooperative, No acute distress HEENT: Atraumatic, PERRLA Lungs: Clear to auscultation, Normal air movement Heart: Regular rate, Normal S1, Normal S2, No murmurs, Other (pain not reproducible) Abdomen: Normal bowel sounds, Soft, No tenderness, Other (obese abdomen) Extremities: No edema Skin: No breakdown Neuro: Normal speech Psych/Mental Status: Mental status NL, Mood NL MUSCULOSKELETAL: No swelling VITALS VITALS Vital Signs Date Time Temp Pulse Resp B/P Pulse Ox O2 Delivery O2 Flow Rate FiO2 06/10/16 10:51 97.5 75 16 123/79 100 Room Air 97.5 LABS Lab: Laboratory Tests Test 06/09/16 12:25 06/09/16 16:56 06/09/16 21:12 06/09/16 21:13 White Blood Count 4.5x10^3/uL (4.0-11.0) Red Blood Count 4.49x10^6/uL (3.50-5.40) Hemoglobin 12.5g/dL (12.0-15.5) Hematocrit 38.5% (36.0-47.0) Mean Corpuscular Volume 86fL (79-100) Mean Corpuscular Hemoglobin 28pg (25-35) Mean Corpuscular Hemoglobin Concent 33g/dL (31-37) Red Cell Distribution Width 13.6% (11.5-14.5) Platelet Count 69x10^3/uL (140-400) Neutrophils (%) (Auto) 46% (31-73) Lymphocytes (%) (Auto) 39% (24-48) Monocytes (%) (Auto) 10% (0-9) Eosinophils (%) (Auto) 4% (0-3) Basophils (%) (Auto) 0% (0-3) Neutrophils # (Auto) 2.1x10^3uL (1.8-7.7) Lymphocytes # (Auto) 1.8x10^3/uL (1.0-4.8) Monocytes # (Auto) 0.5x10^3/uL (0.0-1.1) Eosinophils # (Auto) 0.2x10^3/uL (0.0-0.7) Basophils # (Auto) 0.0x10^3/uL (0.0-0.2) D-Dimer (Lexis) 0.97ug/mlFEU (0.00-0.50) Sodium Level 137mmol/L (136-145) Potassium Level 4.1mmol/L (3.5-5.1) Chloride Level 97mmol/L (98-107) Carbon Dioxide Level 29mmol/L (21-32) Anion Gap 11 (6-14) Blood Urea Nitrogen 14mg/dL (7-20) Creatinine 1.0mg/dL (0.6-1.0) Estimated GFR (Cockcroft-Gault) 70.5 Glucose Level 384mg/dL (70-99) Calcium Level 9.4mg/dL (8.5-10.1) Troponin I Quantitative 0.022ng/mL (0.000-0.055) < 0.017ng/mL (0.000-0.055) Glucose (Fingerstick) 273mg/dL (70-99) 284mg/dL (70-99) Test 06/10/16 05:50 06/10/16 07:21 06/10/16 10:57 White Blood Count 5.7x10^3/uL (4.0-11.0) Red Blood Count 4.25x10^6/uL (3.50-5.40) Hemoglobin 11.9g/dL (12.0-15.5) Hematocrit 35.7% (36.0-47.0) Mean Corpuscular Volume 84fL (79-100) Mean Corpuscular Hemoglobin 28pg (25-35) Mean Corpuscular Hemoglobin Concent 33g/dL (31-37) Red Cell Distribution Width 13.7% (11.5-14.5) Platelet Count 70x10^3/uL (140-400) Sodium Level 139mmol/L (136-145) Potassium Level 3.9mmol/L (3.5-5.1) Chloride Level 100mmol/L (98-107) Carbon Dioxide Level 30mmol/L (21-32) Anion Gap 9 (6-14) Blood Urea Nitrogen 12mg/dL (7-20) Creatinine 0.8mg/dL (0.6-1.0) Estimated GFR (Cockcroft-Gault) 91.1 BUN/Creatinine Ratio 15 (6-20) Glucose Level 239mg/dL (70-99) Calcium Level 9.1mg/dL (8.5-10.1) Total Bilirubin 0.4mg/dL (0.2-1.0) Aspartate Amino Transf (AST/SGOT) 11U/L (15-37) Alanine Aminotransferase (ALT/SGPT) 18U/L (14-59) Alkaline Phosphatase 120U/L (46-116) Total Protein 6.7g/dL (6.4-8.2) Albumin 3.2g/dL (3.4-5.0) Albumin/Globulin Ratio 0.9 (1.0-1.7) Triglycerides Level 111mg/dL (0-150) Cholesterol Level 216mg/dL (0-200) LDL Cholesterol, Calculated 149mg/dL (0-100) VLDL Cholesterol, Calculated 22mg/dL (0-40) HDL Cholesterol 45mg/dL (40-60) Cholesterol/HDL Ratio 4.8 Glucose (Fingerstick) 229mg/dL (70-99) 191mg/dL (70-99) IMAGES IMAGES CXR - without acute findings CTa chest - negative for pulm embolus or aortic dissection multiple lymph nodes = see report EKG EKG no acute changes, SR ASSESSMENT/PLAN ASSESSMENT/PLAN 1. chest pain no acute changes in EKG and troponin levels not consistent with acute RI will check echo to evaluate for WMA reported cath 2 years ago normal - records requested from [facility] ? musculoskeletal as exacerbated with movement and laughing 2. HTN control with meds 3. HLD LDLS = 149 Increase statin therapy as also diabetic 4. pulmonary lymphadenopathy 5. DM, II per primary service Problems: NIRAJ DIAMOND MD 06/10/16 2221: CARDIAC CONSULT ALLERGIES ALLERGIES: Coded Allergies: latex (Verified Allergy, Intermediate, 01/05/16) ASSESSMENT/PLAN ASSESSMENT/PLAN Pt. seen and examined. 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 50 y.o woman with non-cardiac chest pain normal cardiac exam echo wnl. Pls call with questions. thx for consult. Problems: JIMI HINOJOSA APRN Jun 10, 2016 12:24 NIRAJ DIAMOND MD Jun 10, 2016 22:21
[2016-06-10 14:51] VITALS: BP 126/85
--- NOTE | 2016-06-10 16:31 | CARD ---
APPROVED REPORT EXAM: Two-dimensional and M-mode echocardiogram with Doppler and color Doppler. Other Information Quality : Average Rhythm : NSR INDICATION Chest Pain 2D DIMENSIONS RVDd2.9 (2.9-3.5cm)Left Atrium(2D)3.4 (1.6-4.0cm) IVSd1.0 (0.7-1.1cm)Aortic Root(2D)2.7 (2.0-3.7cm) LVDd5.2 (3.9-5.9cm)LVOT Diameter2.0 (1.8-2.4cm) PWd1.0 (0.7-1.1cm)LVDs3.8 (2.5-4.0cm) FS (%) 27.5 %SV70.1 ml LVEF(%)53.1 (>50%) Aortic Valve AoV Peak Alessandro.156.9cm/sAoV VTI30.0cm AO Peak GR.9.8mmHgLVOT Peak Alessandro.72.0cm/s LVOT VTI 11.80cmAO Mean GR.6mmHg JUAN (VMAX)1.45cm2 Mitral Valve MV E Iavqsscw10.0cm/sMV DECEL DNTY564gx MV A Bdzxdvud37.1cm/sMV E Mean Gr.1mmHg MV QGW27pjC/A Ratio1.0 MV A Fbygcfjr552ftERQ (PHT)3.59cm2 TDI E/Lateral E'6.9E/Medial E'7.8 Pulmonary Valve PV Peak Jdmoiehp75.0cm/sPV Peak Grad.3mmHg RVOT VTI19.4cm Tricuspid Valve TR P. Ccttpiex362pe/sRAP ULAAAJJM4qzGy TR Peak Gr.81tqBtVFTJ94opMm Pulmonary Vein S1 Vlzqlwff16.1cm/sD2 Qyysmlcx24.1cm/s LEFT VENTRICLE The left ventricle is normal size. There is normal left ventricular wall thickness. Left ventricle sy stolic function is normal. The Ejection Fraction is 50-55%. There is normal LV segmental wall motion. The left ventricular diastolic function and filling is normal for age. RIGHT VENTRICLE The right ventricle is normal size. The right ventricular systolic function is normal. ATRIA The left atrium size is normal. The right atrium size is normal. The interatrial septum is intact wit h no evidence for an atrial septal defect or patent foramen ovale as noted on 2-D or Doppler imaging. AORTIC VALVE The aortic valve is normal in structure and function. The aortic valve is trileaflet. Doppler and Col or Flow revealed no significant aortic regurgitation. There is no significant aortic valvular stenosi s. MITRAL VALVE The mitral valve is normal in structure and function. There is no mitral valve stenosis. Doppler and Color Flow revealed no mitral valve regurgitation noted. TRICUSPID VALVE The tricuspid valve is normal in structure and function. Doppler and Color Flow revealed trace to mil d tricuspid regurgitation. The PA pressure was estimated at 25 mmHg. There is no tricuspid valve sten osis. PULMONIC VALVE The pulmonic valve is not well visualized. Doppler and Color Flow revealed no pulmonic valvular regur gitation. There is no pulmonic valvular stenosis. GREAT VESSELS The aortic root is normal in size. Normal pulmonary venous flow (Doppler). The IVC is normal in size and collapses >50% with inspiration. PERICARDIAL EFFUSION There is no evidence of significant pericardial effusion. Critical Notification Critical Value: No <Conclusion> Left ventricle systolic function is normal. The Ejection Fraction is 50-55%. There is normal LV segmental wall motion. No significant valvular disease.
[2016-06-10 19:00] VITALS: BP 123/78
[2016-06-10] MEDS: LISINOPRIL 20 MG TABLET PO SCH (20:33)
[2016-06-10] MEDS: INSULIN DETEMIR 300 UNITS/3 ML INSULN.PEN. SQ SCH (20:37)
[2016-06-10] MEDS ORDERED: ATORVASTATIN CALCIUM 40 MG TABLET. PO SCH (21:00)
[2016-06-10] MEDS ORDERED: INSULIN ASPART 300 UNITS/3 ML INSULN.PEN SQ ONE (22:30)
[2016-06-10] MEDS ORDERED: INSULIN DETEMIR 300 UNITS/3 ML INSULN.PEN. SQ ONE (22:30)
[2016-06-10] MEDS: ACETAMINOPHEN 325 MG TABLET. PO PRN (22:30)
[2016-06-10 22:32] VITALS: BP 96/66
--- NOTE | 2016-06-10 23:23 | CONS ---
DATE OF CONSULTATION: DATE OF CONSULTATION: 06/10/2016 ATTENDING PHYSICIAN: Dr. Saba. The patient was seen at the request of Dr. Gonzalez for rehab evaluation about her chest and neck area discomfort. 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 Pain actually radiates into her back. She denies any increased pain with deep breathing, but gets worse with moving. She feels short of breath, lightheadedness and nausea. She actually had pain radiating into her neck and into her left arm earlier on 06/09/2016. She took Pepcid without any help. She was admitted through the Emergency Room. She actually had presented with chest pain at an outside hospital in 2014 at [facility] and had undergone stress test and cardiac cath, which failed to reveal any evidence of coronary artery disease. She had a history of diabetes mellitus, hypertension, hypercholesterolemia, lymphadenopathy in her axillae as well as lesions in her lungs, worked up at , 3 lymph node biopsies between October and January, all inconclusive, being followed currently by Infectious Disease doctors. FAMILY HISTORY: Diabetes and heart disease. 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 ALLERGIES: KNOWN ALLERGIC TO LATEX. The patient had Cardiology evaluate her. She had echocardiogram and CT angiogram, which failed to reveal any evidence of any pulmonary emboli or acute IA. The patient denies any back pain. PHYSICAL EXAMINATION: Today revealed a middle-aged female. She is alert, oriented to time, place, person and circumstance and follows commands appropriately. She had painful range of motion of her cervical and thoracic spine and both shoulders. She had minimal tenderness to palpation over cervical paraspinal muscles. She had 5/5 grade muscle strength in her upper extremities and deep tendon reflexes are 2+ and symmetrical and she had equal perception of touch and pinprick sensation in both upper extremities. No significant tenderness to palpation over sternoclavicular joint area was noted. ASSESSMENT: The patient with chest discomfort, mild cervical muscle strain. No evidence of any acute chest wall discomfort or shoulder problem and no evidence of any cervical radiculopathy. RECOMMENDATIONS: Home when medically stable with followup at [facility] by Infectious Disease. Dr. Gonzalez, I appreciate asking me to participate in the care of this interesting patient. SARA CHAIREZ MD DR: SIERRA/nahid JOB#: [id number] / [id number]
[2016-06-11 02:40] VITALS: BP 112/72
[2016-06-11 07:00] VITALS: BP 141/80
[2016-06-11] MEDS: ACETAMINOPHEN 325 MG TABLET. PO PRN (08:06)
[2016-06-11] MEDS: HYDROCHLOROTHIAZIDE 12.5 MG CAPSULE. PO SCH (08:06)
[2016-06-11] MEDS: GLYBURIDE 5 MG TABLET PO SCH (08:06)
[2016-06-11] MEDS: METFORMIN 1,000 MG TABLET PO SCH (08:06)
[2016-06-11] MEDS: INSULIN ASPART 300 UNITS/3 ML INSULN.PEN SQ SCH ×2 (08:11→11:49)
[2016-06-11 10:41] VITALS: BP 112/71
[2016-06-11] MEDS ORDERED: INSU100I27 SQ (12:16)
--- NOTE | 2016-06-11 12:19 | PDOC3 ---
Discharge Summary [facility]GED WITH [facility] Date of Admission: Jun 09, 2016 Discharge Date: Jun 11, 2016 Admitting Diagnosis chest pain 2/2 muscular pain possibly morbid obeisty, BMI 42 known pulm nodules uncontrolled DM2 dysphnea, 2/2 anxiety and obesity Problems: Final Diagnosis CONSULTS card dr. Hoffman Brief Hospital Course Ms. Kahn is a 50 old F, uncontrolled dm2 , came for chest pain wo tenderness and sob. Pt still feels mild left upper chest pain, neg CE, normal Echo, no card intervention sob is gone dc home with higher levemir to 15u qhs, need to fu with pcp since hba1c is 12 dc time 35min General: Alert, Oriented X3, Cooperative, No acute distress Heart: Regular rate, Normal S1, No murmurs Lungs: Clear Abdomen: Normal bowel sounds, Soft, No tenderness, Other (obese, not tender) Extremities: No clubbing Skin: No rashes Problems: Disposition home CONDITION AT DISCHARGE: Improved Diet ada Scheduled Glyburide (Glyburide) 1 TAB PO DAILY (Reported) Hydrochlorothiazide (Hydrochlorothiazide Tablet) 1 TAB PO HS (Reported) Insulin Detemir (Levemir Flextouch) 15 UNITS SQ QHS Lisinopril (Lisinopril) 1 TAB PO HS (Reported) Metformin Hcl (Metformin Hcl) 1 TAB PO BID (Reported) Pravastatin Sodium (Pravastatin Sodium) 1 TAB PO QHS (Reported) Scheduled PRN Albuterol Sulfate (Proair Hfa Inhaler) 1 PUFF INH PRN Q6HRS PRN PRN SHORTNESS OF BREATH Discontinued Medications Insulin Glargine,Hum.rec.anlog (Lantus Solostar) 10 UNIT SQ QHS (Reported) Follow Up pcp in 2 weeks HENRIK ESPAÑA MD Jun 11, 2016 12:19
[2016-06-11] MEDS ORDERED: INSULIN DETEMIR 300 UNITS/3 ML INSULN.PEN. SQ SCH (21:00)
== END 2016-06-11 15:14 | disposition home or self-care (01) | DRG 206 ==
LOC: ER 11:38 → 5 SOUTH 15:57 → ER 16:28
PROVIDERS: ADMIT Internal Medicine Hematology & Oncology; ATTEND Internal Medicine Hematology & Oncology
DX: R91.1 Solitary pulmonary nodule (principal); Z68.41 Body mass index [BMI] 40.0-44.9, adult; R07.89 Other chest pain; E11.65 Type 2 diabetes mellitus with hyperglycemia; E78.00 Pure hypercholesterolemia, unspecified; E78.5 Hyperlipidemia, unspecified; E87.6 Hypokalemia; F41.9 Anxiety disorder, unspecified; I10 Essential (primary) hypertension; S16.1XXA Strain of muscle, fascia and tendon at neck level, initial encounter; E66.01 Morbid (severe) obesity due to excess calories; Z82.49 Family history of ischemic heart disease and other diseases of the circulatory system; Z83.3 Family history of diabetes mellitus; Z91.040 Latex allergy status
CPT/HCPCS: 36415; 71020; 71275; 80048; 80053; 80061; 82947; 83036; 84484; 85027; 85379; 93005; 93306; 94250; 94760; 96374; 96375; 96376; J1815; J2270; J2405; J2765; J7030; Q9967; 99285-25